=== PATIENT | male | born 1980 | race Asian ===

== ENCOUNTER 2017-10-17 10:17 | Emergency (ER) | payer MEDICAID ==
[~2017-10-17] VITALS: Ht 177.8 cm; Wt 81.8 kg
[2017-10-17 10:32] LABS: GLUCOSE,POINT OF CARE 382 MG/DL (70-110)
[2017-10-17] MEDS ORDERED: SODIUM CHLORIDE 0.9% 2,000 ML IV ONE (10:34)
[2017-10-17] MEDS ORDERED: METF850T2 PO (10:40)
[2017-10-17 10:53] LABS: BASOPHILS % (AUTO) 0.5 % (0.0-2.0); EOSINOPHILS % (AUTO) 1.3 % (1.0-6.0); HEMATOCRIT 42.7 % (41-53); LYMPHOCYTES # (AUTO) 1.1 K/uL (1.0-4.8); MEAN CORPUSCULAR HEMOGLOBIN 29.6 pg (26.0-34.0); MEAN CORPUSCULAR HGB CONC 35.2 G/dL (31.0-37.0); MEAN CORPUSCULAR VOLUME 84 fL (80-100); MONOCYTES # (AUTO) 0.5 K/uL (0.1-1.0); MONOCYTES % (AUTO) 6.1 % (2.0-9.0); NEUTROPHILS # (AUTO) 5.9 K/uL (1.8-7.7); NEUTROPHILS % (AUTO) 77.1 % (40.0-70.0); PLATELET COUNT (AUTO) 292 K/uL (150-450); RED BLOOD CELL COUNT(AUTO) 5.08 MIL/uL (4.50-5.90); RED CELL DISTRIBUTION WIDTH 13.6 % (11.5-14.5)
[2017-10-17 11:02] LABS: ANION GAP 13 mmol/L (8-16); CALCIUM, TOTAL 8.8 mg/dL (8.8-10.5); CARBON DIOXIDE 22 mmol/L (22-29); CHLORIDE 99 mmol/L (98-107); CREATININE 1.53 mg/dL (0.60-1.30); GLOMERULAR FILTR. RATE CALC 51 mL/min (>60); GLUCOSE,RANDOM 392 mg/dL (70-110); POTASSIUM 3.9 mmol/L (3.5-5.1); SODIUM SERUM 134 mmol/L (136-145); UREA NITROGEN, BLOOD 18 mg/dL (7-18)
[2017-10-17 11:07] LABS: ALANINE AMINOTRANSFERASE 52 U/L (12-78); ALBUMIN 3.7 g/dL (3.4-5.0); ALKALINE PHOSPHATASE 74 U/L (46-116); ASPARTATE AMINOTRANSFERASE 31 U/L (15-37); BILIRUBIN,TOTAL 0.6 mg/dL (0.1-1.0); LIPASE 116 U/L (73-393); TOTAL PROTEIN, SERUM 7.6 g/dL (6.4-8.2)
[2017-10-17 11:24] LABS: B-TYPE NATRIURETIC PEPTIDE < 5 pg/mL (0-100)
[2017-10-17] MEDS ORDERED: LIDOCAINE HCL 2%/EPI 1:200,000/PF 20 ML VIAL INJ ONE (11:30)
[2017-10-17 12:58] LABS: GLUCOSE,POINT OF CARE 250 MG/DL (70-110)
[2017-10-17 13:01] VITALS: BP 141/88
[2017-10-17] MEDS ORDERED: BACITRACIN 0.9 GM PACKET OINTMENT TP ONE (13:45)
== END 2017-10-17 13:35 | disposition home or self-care (01) ==
LOC: EMS 10:19
DX: S61.421A Laceration with foreign body of right hand, initial encounter (principal); E11.65 Type 2 diabetes mellitus with hyperglycemia; W23.0XXA Caught, crushed, jammed, or pinched between moving objects, initial encounter; Y93.89 Activity, other specified; Y92.89 Other specified places as the place of occurrence of the external cause; Y99.8 Other external cause status
CPT/HCPCS: 73130; 80053; 82962; 83690; 83880; 84484; 85025; 96360; 96361; 99285; J7030; X6474